=== PATIENT | female | born 2000 | race Caucasian/White ===

== ENCOUNTER 2021-01-03 14:18 | Emergency (ER) | payer OTHER | END 2021-01-03 18:19 | disposition home or self-care (01) | LOC: FER 14:18 | DX: S01.21XA Laceration without foreign body of nose, initial encounter (principal); S00.12XA Contusion of left eyelid and periocular area, initial encounter; Z23 Encounter for immunization; Z88.0 Allergy status to penicillin; W22.09XA Striking against other stationary object, initial encounter; Y92.009 Unspecified place in unspecified non-institutional (private) residence as the place of occurrence of the external cause | CPT/HCPCS: 90471; 90715 ==